=== PATIENT | male | born 1960 | race Two or more races ===

== ENCOUNTER → 2020-08-11 15:44 | Outpatient (CLI) | payer OTHER | END | disposition home or self-care (01) | LOC: PPH VACUNA 15:44 | DX: Z23 Encounter for immunization (principal) ==

== ENCOUNTER 2020-10-11 11:47 | Outpatient (CLI) | payer OTHER | END 2020-10-11 12:04 | disposition home or self-care (01) | LOC: RAD 11:47 | PROVIDERS: ATTEND Orthopaedic Surgery | DX: M79.642 Pain in left hand (principal); M25.532 Pain in left wrist ==

== ENCOUNTER 2022-02-05 14:17 | Outpatient (CLI) | payer OTHER | END 2022-02-05 14:27 | disposition home or self-care (01) | LOC: RAD 14:17 | PROVIDERS: ATTEND Orthopaedic Surgery | DX: M25.512 Pain in left shoulder (principal) ==